=== PATIENT | female | born 1990 | race African-American/Black ===

== ENCOUNTER 2019-07-22 12:29 | Emergency (ER) | payer MEDICAID ==
[~2019-07-22] VITALS: Ht 167.6 cm; Wt 59.0 kg
[2019-07-22] MEDS ORDERED: IBUPROFEN 600MG TABLET PO ONE (13:00)
[2019-07-22 13:21] LABS: EOSINOPHILS % 2.6 % (0.0-5.0); HEMATOCRIT. 37.4 % (36.0-48.0); HEMOGLOBIN. 12.7 g/dL (12.0-16.0); LYMPHOCYTES % 28.5 % (20.0-50.0); MEAN CORPUSCULAR HEMOGLOBIN 29.4 pg (28.0-32.0); MEAN CORPUSCULAR VOLUME 86.5 fL (81.0-99.0); MEAN PLATELET VOLUME 7.7 fl (7.4-10.4); MONOCYTES % 9.3 % (2.0-8.0); NEUTROPHILS % 58.6 % (40.0-76.0); PLATELET 264 x1000/uL (130-400); RED BLOOD CELL COUNT 4.33 mill/uL (4.2-5.4); RED CELL DISTRIBUTION WIDTH 13.1 % (11.6-14.6)
[2019-07-22 13:28] LABS: CHLORIDE 105 mEq/L (98-107)
[2019-07-22 19:06] VITALS: BP 131/87
[2019-07-22] MEDS ORDERED: IOHEXOL-350 100 ML BOTTLE ONE (19:07)
== END 2019-07-22 19:08 | disposition home or self-care (01) ==
LOC: ER 12:45
DX: J18.9 Pneumonia, unspecified organism (principal); R07.89 Other chest pain
CPT/HCPCS: 36415; 71045; 71275; 80053; 81025; 85025; 85379; 93005; 99284; Q9967; Z7610